=== PATIENT | male | born 1940 | race Hispanic/Latino ===

== ENCOUNTER → 2017-10-29 | Outpatient (CLI) | payer MEDICARE ==
[~2017-10-29] MED LIST: IOPAMIDOL 370 MG/ML 200 ML INFUS..BTL INJ ONE; SODIUM CHLORIDE 0.9% 250ML 500 ML ONE; SODIUM CHLORIDE 0.9% 50ML 50 ML ONE
[2017-10-29 13:42] LABS: CREATININE, SERUM 1.42 mg/dL (0.72-1.25)
--- NOTE | 2017-10-29 15:56 | Diagnostic Imaging Report ---
EXAM: CT Abdomen WITH contrast INDICATION: \[id number] \S\1400 \S\ELEVATED PANCREATIC ENZYMES/WT LOSS COMPARISON: None. TECHNIQUE: Abdomen was scanned utilizing a multidetector helical scanner from the lung base to the iliac crest after administration of IV contrast. Coronal and sagittal reformations were obtained. Routine protocol was performed. Scan was performed when during portal venous phase. IV CONTRAST: 100 mL of Isovue-370 ORAL CONTRAST: Water COMPLICATIONS: None RADIATION DOSE: Total DLP: 625.03 mGy*cm Estimated effective dose: (DLP x 0.015 x size factor) mSv CTDIvol has been reviewed. It is below the limits set by the Radiation Protocol Committee (RPC). FINDINGS: LINES and TUBES: None. LOWER THORAX: Nonspecific 3 mm posterior right base nodule. Partially imaged atherosclerotic calcification of the coronary arteries. HEPATOBILIARY: Ill-defined right hepatic lobe lesion, extending from segment 7, inferiorly. No biliary ductal dilation. GALLBLADDER: Surgically absent. SPLEEN: No splenomegaly. Punctate calcified granulomas. PANCREAS: Atrophic pancreas. No peripancreatic inflammation. No focal masses or ductal dilatation. ADRENALS: At least 8 x 9.2 cm heterogeneously enhancing mass with central necrotic areas in the area of right adrenal gland with focal extension to the adjacent hepatic parenchyma (series 6, image 15) and mass effect on right kidney. No left adrenal nodule. KIDNEYS/URETERS: Kidneys enhance symmetrically. No hydronephrosis. 1.6 cm left renal midpole cyst. Multiple additional bilateral subcentimeter hypodensities are too small to characterize. No stones. GI TRACT: Visualized bowel loops are unremarkable. No evidence of bowel obstruction. Normal appendix. LYMPH NODES: No lymphadenopathy. VESSELS: Severe aortoiliac atherosclerotic disease. Dilated portal vein, measuring up to 2.1 cm. PERITONEUM / RETROPERITONEUM: No free air. Trace ascites in the Morison pouch, adjacent to the liver and the above-mentioned mass. BONES: Mild lumbar spine scoliosis with multilevel degenerative changes. Multiple right-sided posterior rib old fracture deformities. SOFT TISSUES: Unremarkable. IMPRESSION: 1. At least 9.2 cm heterogeneously enhancing mass in the Alegria's pouch, with local extension to the liver and inferior displacement of the right kidney. The origin of the mass could be right adrenal or renal. Differentials include adrenal carcinoma or renal cell carcinoma with local invasion to the right hepatic lobe. 2. No signs of pancreatitis. Signed by: Dr. Brad Artis MD on 10/29/2017 2:56 PM
== END ==
LOC: CT 13:04
PROVIDERS: ATTEND Family Medicine
DX: R74.8 Abnormal levels of other serum enzymes (principal); R63.4 Abnormal weight loss; R63.0 Anorexia
CPT/HCPCS: 36415; 74160; 82565; 84520; J7050; Q9967

== ENCOUNTER → 2017-12-06 | Outpatient (CLI) | payer MEDICARE ==
[~2017-12-06] MED LIST changes: -SODIUM CHLORIDE 0.9% 250ML 500 ML ONE
[2017-12-06 17:02] LABS: BASOPHILS % 0.4 % (0.0-1.0); EOSINOPHILS # (AUTO) 0.1 (0.0-0.4); EOSINOPHILS % 1.6 % (0.0-6.0); HEMATOCRIT 37.9 % (38.2-49.6); HEMOGLOBIN 12.7 g/dL (14.0-18.0); LYMPHOCYTES % 17.8 % (18.0-39.1); MEAN CORPUSCULAR HEMOGLOBIN 30.8 pg (28-32); MEAN CORPUSCULAR HGB CONC 33.5 g/dL (31-35); MEAN CORPUSCULAR VOLUME 91.8 fL (81-99); MONOCYTES # (AUTO) 0.5 (0.2-0.8); MONOCYTES % 9.2 % (4.4-11.3); NEUTROPHILS % 70.8 % (38.7-80.0); PLATELET COUNT 247 x10e3/uL (140-360); RED BLOOD COUNT 4.13 x10e6/uL (4.3-5.7); RED CELL DISTRIBUTION WIDTH 13.2 % (11.7-14.4)
--- NOTE | 2017-12-06 17:26 | Diagnostic Imaging Report ---
EXAMINATION: PA and lateral views of the chest. COMPARISON: None CLINICAL HISTORY: Adrenal mass DISCUSSION: Lines/tubes: None. Lungs: The lungs are well inflated and clear. There is no evidence of pneumonia or pulmonary edema. Pleura: There is no pleural effusion or pneumothorax. Heart and mediastinum: Cardiomediastinal silhouette is unremarkable. Pulmonary vasculature is normal. Bones and soft tissues: No acute bony abnormalities. Healed right-sided rib fractures. Degenerative changes in the thoracic spine. IMPRESSION: No acute cardiopulmonary abnormalities. Signed by: Dr. Jono Liu M.D. on 12/06/2017 5:23 PM
[2017-12-06 18:15] LABS: ALANINE AMINOTRANSFERASE 63 IU/L (0-55); ALBUMIN 3.7 g/dL (3.5-5.0); ALBUMIN/GLOBULIN RATIO 1.1 (0.8-2.0); ALKALINE PHOSPHATASE 136 IU/L (40-150); ANION GAP 15.7 mmol/L (8-16); BLOOD UREA NITROGEN 22 mg/dL (7-26); BUN/CREATININE RATIO 19 (6-25); CALCIUM 9.6 mg/dL (8.4-10.2); CARBON DIOXIDE 19 mmol/L (22-29); CHLORIDE 100 mmol/L (98-107); CREATININE, SERUM 1.16 mg/dL (0.72-1.25); EST GLOMERULAR FILTRATION RATE > 60 ML/MIN (60-); GLUCOSE 92 mg/dL (74-118); POTASSIUM 4.7 mmol/L (3.5-5.1); SODIUM 130 mmol/L (136-145)
--- NOTE | 2017-12-06 19:14 | Diagnostic Imaging Report ---
EXAMINATION: CT scan of the chest with contrast. TECHNIQUE: Spiral CT images of the chest were performed from the lung apices to the level of the adrenal glands after the intravenous administration of 100 cc of Isovue 370. Coronal and sagittal reformatted images were obtained. COMPARISON: None. CLINICAL HISTORY:Adrenal mass DISCUSSION: LINES/TUBES: None. LUNGS AND AIRWAYS: The lungs are clear. No pulmonary nodules, masses or consolidation. The airways are clear, without endobronchial lesions. PLEURA: No pneumothorax or pleural effusions. HEART AND MEDIASTINUM: Thyroid is unremarkable. Heart size is normal. No pericardial effusion. Atherosclerotic calcification of the coronary arteries and thoracic aorta. Aorta is nonaneurysmal. Main pulmonary artery is normal in caliber. LYMPH NODES: Calcified subcarinal and right lower paratracheal lymph nodes. No enlarged mediastinal, hilar or axillary lymph nodes. No supraclavicular adenopathy. ABDOMEN: See CT abdomen and pelvis performed same day for further detail. BONES AND SOFT TISSUES: Lobulated, well circumscribed lucent lesion with thin sclerotic border in the left humeral head likely represents cystic degenerative changes (series 2, image 6). 1.0 cm lucent lesion with thin sclerotic border in the left lamina of C7 (series 2, image 3 and coronal image 78) has a nonaggressive appearance, without cortical erosion or destruction. Partially healed nondisplaced fractures of the posterolateral aspect of the right eighth, ninth, 10th, 11th ribs (series 2, images 32, 39, 49 and 60). Likely partially healed fracture of the posterolateral aspect of the left 10th rib (series 2, image 47).. IMPRESSION: 1. No pulmonary nodules or masses. 2. Lucent lesions in the left humeral head and left lamina of C7 have a nonaggressive appearance and likely represent cystic/degenerative changes. 3. Partially healed nondisplaced rib fractures, as described. No underlying focal mass or lytic lesion to suggest a pathologic fracture. Correlate for prior trauma. Signed by: Dr. Jono Liu M.D. on 12/06/2017 7:11 PM
--- NOTE | 2017-12-06 19:34 | Diagnostic Imaging Report ---
EXAMINATION: CT of the abdomen and pelvis with contrast. TECHNIQUE: Spiral CT images of the abdomen and pelvis were performed from the lung bases to the lesser trochanters after the intravenous administration of 100 cc of Isovue 370 and the oral administration of water. Coronal and sagittal reformatted images were obtained. COMPARISON: CT abdomen with contrast 10/29/2017 CLINICAL HISTORY:Adrenal mass DISCUSSION: ABDOMEN/PELVIS: LOWER THORAX:Please see chest CT performed same date for further detail. HEPATOBILIARY: Interval increase in size of irregular heterogeneous mildly hypodense lesion with heterogeneous enhancement in its superior aspect, measuring approximately 8.1 x 5.3 x 5.8 cm involving hepatic segment VII (series 2, image 51), consistent with direct extension from the adjacent adrenal neoplasm (previously measured approximately 6.9 x 5.3 x 4.4 cm). No other focal hepatic lesions. Mildly nodular hepatic contour. No intra or extrahepatic biliary ductal dilation. GALLBLADDER: Cholecystectomy clips. SPLEEN: No splenomegaly. Calcified splenic granuloma PANCREAS: No focal masses or ductal dilatation. ADRENALS: Slight interval increase in size in the previously visualized heterogeneous mass centered in the right adrenal gland (series 2, image 57 and coronal image 85), which measures approximately 10.6 x 10.0 x 8.7 cm (previously measured 10.0 x 9.0 x 8.3 cm). Central hypodense portions likely represent areas of necrosis. There are scattered internal areas of enhancement (for example series 2, image 60). There is direct extension/invasion into hepatic segment VII. The mass abuts the superior pole of the right kidney, with loss of the fat plane (sagittal image 42 and coronal image 85). Left adrenal gland is unremarkable. KIDNEYS/URETERS: No hydronephrosis, or stones. 1.8 cm simple cyst in the left anterolateral interpolar region (series 2, image 65). Left subcentimeter hypodense lesions, which are too small to characterize but likely represent small cysts. Cortical scarring is noted in bilateral kidneys. PELVIC ORGANS/BLADDER: Circumferential bladder wall thickening, without focal lesions. Prostate is mildly enlarged. PERITONEUM/RETROPERITONEUM: No free air or fluid. LYMPH NODES: No intra-abdominal, retroperitoneal, pelvic or inguinal lymphadenopathy. VESSELS: The celiac trunk,superior and inferior mesenteric and bilateral renal arteries are patent The portal, superior mesenteric and splenic veins are patent. Moderate atherosclerotic calcification of the abdominal aorta and iliac vessels. No filling defects are seen in the IVC. GI TRACT: No bowel dilation or evidence of obstruction. No pericolonic inflammatory changes. BONES AND SOFT TISSUE: No aggressive lytic lesions. Multilevel degenerative disc changes in the lower thoracic and lumbosacral spine, with leftward curvature of the lumbar spine. Soft tissues are grossly unremarkable. IMPRESSION: 1. Slight interval increase in size of large heterogeneous mass centered in the right adrenal gland, highly suspicious for adrenal cortical carcinoma, with interval increase in size of direct extension into hepatic segment VII. The mass abuts the superior pole the right kidney, with loss of the fat plane, and direct extension cannot be excluded. A malignant pheochromocytoma is a much less likely consideration. No evidence of metastatic disease in the abdomen or pelvis. 2. Circumferential bladder wall thickening, which may be secondary to bladder on the obstruction from a mildly enlarged prostate. Correlate for cystitis. 3. Mildly nodular hepatic contour, likely reflecting underlying cirrhosis. Signed by: Dr. Jono Liu M.D. on 12/06/2017 7:31 PM
== END ==
LOC: CT 16:27
PROVIDERS: ATTEND Surgery
DX: R19.09 Other intra-abdominal and pelvic swelling, mass and lump (principal)
CPT/HCPCS: 36415; 71046; 71260; 74177; 80053; 85025; Q9967; 93005

== ENCOUNTER → 2018-01-23 | Outpatient (CLI) | payer MEDICARE ==
[2018-01-23 17:23] LABS: CREATININE, SERUM 1.17 mg/dL (0.72-1.25)
--- NOTE | 2018-01-23 22:00 | Diagnostic Imaging Report ---
EXAM: CT Chest WITH contrast 01/23/2018 4:29 PM INDICATION: Abdominal mass COMPARISON: CT of the abdomen and pelvis on 12/06/2017 TECHNIQUE: Chest was scanned utilizing a multidetector helical scanner from the lung apex through the level of the adrenal glands without administration of IV contrast. Coronal and sagittal reformations were obtained. Routine protocol was performed. IV CONTRAST: 100 mL of Isovue-370 RADIATION DOSE: Total DLP: 528.13 mGy*cm Estimated effective dose: (DLP x 0.014 x size factor) mSv COMPLICATIONS: None FINDINGS: LINES/ TUBES: None. LUNGS AND AIRWAYS: The lungs are unremarkable. Airways are normal. PLEURA: The pleural spaces are clear. HEART AND MEDIASTINUM: The thyroid gland is normal. There are multiple, small mediastinal lymph nodes in the aortopulmonary, right lower paratracheal and subcarinal stations. The heart is normal in size.. There is no pericardial effusion. There are moderate atherosclerotic calcifications in the aorta and coronary arteries. UPPER ABDOMEN: There is a partially visualized large left hepatic mass that appears to arise from the right lobe of the liver, segment 7 measuring approximately 11.8 x 12.7 x 12.6 cm with extension into the right portal vein (tumor thrombus) best seen on series 2, image 120. The kidney appears to be displaced inferiorly with questionable invasion of the upper pole. BONES: There are degenerative changes in the thoracic spine. Severe degenerative changes of the bilateral glenohumeral and acromioclavicular joints more significant at the left glenohumeral (large subchondral cysts, synovial hypertrophy and calcifications) SOFT TISSUES: Unremarkable. IMPRESSION: 1. No evidence of intrathoracic metastatic disease. 2. Numerous lymph nodes in the mediastinum are below the threshold for adenopathy. 3. Large hypervascular mass with large right portal vein thrombus is suspicious for T4 adrenocortical carcinoma or less likely hepatocellular carcinoma. Correlation with tissue sampling reports. 4. Moderate atherosclerotic disease of the thoracic aorta and branches including coronary arteries. Signed by: Dr. Wally Mills M.D. on 01/23/2018 9:57 PM
== END ==
LOC: CT 16:10
PROVIDERS: ATTEND Family Medicine
DX: R74.8 Abnormal levels of other serum enzymes (principal); R19.07 Generalized intra-abdominal and pelvic swelling, mass and lump; R63.0 Anorexia; R63.4 Abnormal weight loss
CPT/HCPCS: 36415; 71260; 82565; 84520; Q9967

== ENCOUNTER → 2018-03-20 | Outpatient (CLI) | payer MEDICARE ==
[~2018-03-20] MED LIST changes: +FENTANYL CITRATE/PF 100MCG/2 ML INJ ONE; +GELATIN SPONGE 12-7MM ONE; -IOPAMIDOL 370 MG/ML 200 ML INFUS..BTL INJ ONE; +MIDAZOLAM HCL 2 MG/2 ML VIAL ONE; -SODIUM CHLORIDE 0.9% 50ML 50 ML ONE
[2018-03-20 09:45] LABS: INR 0.86; PROTHROMBIN TIME 12.5 seconds (11.9-14.5)
[2018-03-20 09:46] LABS: PARTIAL THROMBOPLASTIN TIME 30.7 seconds (23.8-35.5)
--- NOTE | 2018-03-20 12:37 | Diagnostic Imaging Report ---
CT guided fine needle aspiration and core biopsy of hepatorenal space mass. Comparison: CT Abdomen/Pelvis Consent: The nature of the procedure, including its risks, benefits and alternatives was explained to the patient who understood and gave consent. Operators: Tray Rios MD Anesthesia: Intravenous conscious sedation was administered by radiology nursing. Continuous hemodynamic and respiratory monitoring was performed, including the use of pulse oximetry. Sedation start time: 1036 AM Sedation end time: 1120 AM Total sedation time: 44 minutes. Medications: 10 cc of 1% subcutaneous lidocaine Fentanyl and Versed per nursing administration records TECHNIQUE: The patient was placed in the prone position. Initial CT demonstrated the right hepatorenal space mass, possibly arising from the adrenal gland, and possible involvement of the right upper kidney. A satisfactory path to the mass was identified. The skin of the right back was marked, prepped, draped and anesthetized with 1% lidocaine. With CT guidance, a 16 gauge introducer needle was inserted into the left upper quadrant mass. Fine needle aspirates with a 22 gauge Chiba needle were performed. Subsequently, with CT guidance, core biopsies were obtained with an 18 gauge core biopsy device. Pathology determined the samples were satisfactory for diagnosis. Gelfoam embolization of the tract was performed and the introducer needle was subsequently removed. Sterile bandage was placed. IMPRESSION: CT guided fine needle aspiration and core biopsy of right hepatorenal space mass as above. Signed by: Dr. Tray Rios MD on 03/20/2018 12:33 PM
== END ==
LOC: CT 07:19
PROVIDERS: ATTEND Surgery
DX: R16.0 Hepatomegaly, not elsewhere classified (principal)
CPT/HCPCS: 10022; 36415; 49180; 77012; 85049; 85610; 85730; 88112; 88172; 88173; 88305; 88342; J2250; 99152; 99153

== ENCOUNTER 2018-04-05 11:00 | Outpatient (RCR) | payer MEDICARE | END 2018-04-08 | LOC: PT 11:00 | PROVIDERS: ATTEND Specialist | DX: M25.511 Pain in right shoulder (principal); S42.301A Unspecified fracture of shaft of humerus, right arm, initial encounter for closed fracture | CPT/HCPCS: 97110 ×8; 97161; G8984; G8985 ==

== ENCOUNTER → 2018-04-24 | Outpatient (CLI) | payer MEDICARE ==
[~2018-04-24] MED LIST changes: -FENTANYL CITRATE/PF 100MCG/2 ML INJ ONE; +GADOBENATE DIMEGLUMINE 1 ML IV ONE; -GELATIN SPONGE 12-7MM ONE; -MIDAZOLAM HCL 2 MG/2 ML VIAL ONE
[2018-04-24 09:22] LABS: BLOOD UREA NITROGEN 23 mg/dL (7-26); BUN/CREATININE RATIO 20 (6-25); CREATININE, SERUM 1.13 mg/dL (0.72-1.25); EST GLOMERULAR FILTRATION RATE > 60 ML/MIN (60-)
--- NOTE | 2018-04-24 13:15 | Diagnostic Imaging Report ---
MRI abdomen CPT code: 64378 Indication: Hepatocellular carcinoma Technique: Multiplanar, multi-sequential MRI was performed both before and after the intravenous administration of 12 cc of gadolinium. Liver protocol was used. Comparison: CT chest 01/23/2018, CT chest, abdomen, pelvis 12/06/2017 Findings: Images are motion degraded due to patient's inability to adequately breath-hold. Liver: Morphology: Cirrhotic. Masses: * Solid soft tissue mass is exophytic and extends into Morison's pouch. It arises from segments 7 and 6. It involves the upper pole of the right kidney and the right adrenal gland. This mass is hypervascular with evidence of washout on delayed sequences. This mass measures 13.2 x 14.3 x 13.7 cm (AP, transverse, craniocaudal). On CT of the chest performed January 26, 2018, this mass measured 12.7 x 12.6 x 11.8 cm. This mass does not contain elements of blood or fat. This mass was biopsied. * Hypervascular lesion abutting the capsule of segment 8 measures 15 mm without evidence of washout. There is no evidence of mass in the left lobe. * There is tumor thrombus involving the distal main portal vein and the right portal vein branches (series 10, image 72) with resulting altered perfusion of segments 8 and 5. * No evidence of mass in the left lobe. * The left portal vein measures 18 mm in diameter and is patent. Hepatic veins: There is mass effect on the intrahepatic IVC and infrahepatic IVC secondary to tumor. Invasion cannot be excluded. The suprahepatic IVC is patent. Hepatic artery: Poorly visualized due to motion artifact. Hepatic artery branching appears conventional. Gallbladder: Not visualized and may be absent. Biliary tree: Mild intrahepatic biliary ductal distention, particularly in the right lobe. The common bile duct measures 5 mm in maximum dimension without intraluminal filling defects. Pancreas: Normal T1 signal. No mass or ductal dilatation. Spleen: Measures 12.4 cm in length. The contours are rounded. No mass Adrenal glands: The right adrenal gland is not visualized. The left adrenal gland is normal in morphology without mass. Kidneys: Right kidney: There is no fat plane between the liver mass and the upper pole of the right kidney. The interpolar cortex and the lower pole cortex have normal T2 signal with normal enhancement. There is an 8 mm high T2, low T1 signal lesion in the lateral cortex suggestive of a cyst. There are no enhancing renal lesions in the lower pole. The collecting system is not dilated. There is a small extrarenal pelvis. There is mass effect on the renal vein IVC confluence from the hepatic tumor. Invasion of the distal renal vein cannot be excluded. Left kidney: There are several cysts, measuring up to 2.1 x 1.7 cm. No enhancing mass or hydronephrosis. The left renal vein is patent. Lymph nodes: Motion degradation limits evaluation of the neel hepatis to identify enlarged lymph nodes. There are no enlarged. Aortic lymph nodes. No enlarged lymph nodes in the gastrohepatic ligament. Bowel: Stomach and visualized portions of the small bowel and large bowel are normal in diameter with normal wall thickness. Peritoneum/retroperitoneum: There is a trace amount of perihepatic ascites. No loculated fluid collection. Lung bases: Clear. Bones: Mild levoscoliosis of the lumbar spine. Diffuse degenerative changes of the lower thoracic and lumbar spine. Marrow signal is normal. No focal osseous lesions. Soft tissues: No soft tissue mass or hernia. IMPRESSION: Compromised study due to motion degradation. 1. Enlarging intrahepatic mass with exophytic component that involves the right kidney, right adrenal gland, IVC and distal right renal vein (LR 5). Invasion of the IVC and distal right renal vein cannot be excluded. 2. Tumor thrombus in the right portal vein and distal main portal vein (LR TIV). 3. Cirrhosis and portal hypertension. Rounded splenic contours are suggestive of developing splenomegaly. No significant amount of ascites. LR-TR Viable= Treated, Probably or definitely viable LR-TR Equivocal= Treated, Equivocally viable LR-TR Nonviable= Treated, Probably or definitely not viable LR-TR Nonevaluable= Treated, Response not evaluable due to image omission or degradation LR-NC Cannot be categorized due to image degradation or omission LR M = Possible non-HCC malignancy LR TIV = Definitely hepatocellular carcinoma tumor in the vein LR 5 = Definitely hepatocellular carcinoma (concordant with OPTN 5) LR 4 = Probably hepatocellular carcinoma LR 3 = Intermediate probability for hepatocellular carcinoma LR 2 = Probably benign LR 1 = Definitely benign Note: LI-RADS categories should be interpreted in the context of other available data, such as biomarkers and the patient's prior probability of developing or having hepatocellular carcinoma. The LI-RADS/OPTN classification of liver lesions has been adopted to standardize CT and MRI scan reporting in patients at risk for hepatocellular carcinoma. The imaging criteria for "definite hepatocellular carcinoma " are concordant for the LI-RADS and OPTN systems. LI-RADS criteria and documentation are available online at [email or web address].org/LI-RADS. This report utilizes LI-RADS version 2018. Signed by: Dr. Twila Ugarte MD on 04/24/2018 1:11 PM
== END ==
LOC: MRI 08:23
PROVIDERS: ATTEND Internal Medicine Hematology & Oncology
DX: C22.8 Malignant neoplasm of liver, primary, unspecified as to type (principal)
CPT/HCPCS: 36415; 74183; 82565; 84520

== ENCOUNTER → 2018-05-09 | Outpatient (RCR) | payer MEDICARE | LOC: PT 04-11 11:00 | PROVIDERS: ATTEND Specialist | DX: M25.511 Pain in right shoulder (principal); M25.611 Stiffness of right shoulder, not elsewhere classified; M62.81 Muscle weakness (generalized) | CPT/HCPCS: 97110 ×9; 97112 ×2; 97139; G8984; G8985 ==

== ENCOUNTER 2018-05-10 10:31 | Outpatient (RCR) | payer MEDICARE | END 2018-06-06 | LOC: PT 10:31 | PROVIDERS: ATTEND Specialist | DX: M25.511 Pain in right shoulder (principal); M25.611 Stiffness of right shoulder, not elsewhere classified; M62.81 Muscle weakness (generalized) | CPT/HCPCS: 97139 ==

== ENCOUNTER → 2018-10-09 | Outpatient (CLI) | payer MEDICARE ==
[~2018-10-09] MED LIST changes: -GADOBENATE DIMEGLUMINE 1 ML IV ONE; +IOPAMIDOL 370 MG/ML 200 ML INFUS..BTL INJ ONE; +SODIUM CHLORIDE 0.9% 500ML 500 ML ONE; +SODIUM CHLORIDE 0.9% 50ML 50 ML ONE
[2018-10-09 15:58] LABS: CREATININE, SERUM 1.64 mg/dL (0.72-1.25)
--- NOTE | 2018-10-09 20:29 | Diagnostic Imaging Report ---
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 Coronal and sagittal reformations were obtained. Routine protocol was performed. Scan was performed when during portal venous phase. IV CONTRAST: 100 mL of Isovue 370 ORAL CONTRAST: None. COMPLICATIONS: None RADIATION DOSE: Total DLP: 184 mGy*cm Estimated effective dose: (DLP x 0.015 x size factor) mSv CTDIvol has been reviewed. It is below the limits set by the Radiation Protocol Committee (RPC). Dose modulation, iterative reconstruction, and/or weight based adjustment of the mA/kV was utilized to reduce the radiation dose to as low as reasonably achievable. FINDINGS: LINES and TUBES: None. LOWER THORAX: Calcific coronary artery atherosclerosis. HEPATOBILIARY: Compared to abdominal MRI 04/24/2018, similar size of the 14.4 x 15.4 x 13.5 cm (SI x AP x ML) centrally necrotic mass which extends from the right hepatic dome through the hepatorenal recess and adrenal fossa, and into the superior aspect of the right kidney . Heterogeneity of the adjacent superoanterior aspect of the right hepatic lobe. The superior intrahepatic aspect of the mass is ill defined. No biliary ductal dilation. GALLBLADDER: Not identified. SPLEEN: No splenomegaly. PANCREAS: No focal masses or ductal dilatation. ADRENALS: Right adrenal fossa is occupied by the large necrotic mass described above. KIDNEYS/URETERS: The superior aspect of the right kidney is involved by the large necrotic mass described above. Stable 1.6 cm left renal simple cyst. Additional cysts are too small to characterized, likely benign. GI TRACT: No abnormal distention, wall thickening, or evidence of bowel obstruction. LYMPH NODES: Slight increased size of upper retroperitoneal lymph nodes compared to abdominal CT on 01/23/2018, for example a 1.9 cm right periaortic lymph node (series 2 image 32), was 1.6 cm, and a 0.8 cm left periaortic lymph node (series 2 image 34), was 0.6 cm. VESSELS: Increased size of the main portal vein tumor thrombus now measures up to 2.8 cm (series 2 image 25), was 2.2 cm on abdominal MRI 04/24/2018. Subtle nodularity along the posterior aspect of the intrahepatic IVC (series 2 image 26, series 300 image 54) PERITONEUM / RETROPERITONEUM: Hazy mesentery and subtle nodularity in the hepatorenal recess, and trace fluid along the right hepatic margin. BONES: There are degenerative changes in the lumbar spine. SOFT TISSUES: Unremarkable. IMPRESSION: Compared to abdominal MRI 04/24/2018, similar size of the transcompartmental mass centered in the right adrenal fossa, which extends to the right hepatic dome and involves the superior right kidney. This is likely an adrenal adenocarcinoma, other considerations are renal cell or hepatocellular carcinoma. Heterogeneous attenuation of the superoanterior aspect of the right hepatic lobe could be perfusion related or due to advancing hepatic tumor infiltration. Increased size of the main portal vein tumor thrombus. Probable local mesenteric/retroperitoneal metastatic nodularity in the right upper abdomen and upper retroperitoneal adenopathy. Suspicion for new focal intrahepatic inferior vena cava invasive tumor thrombus Signed by: Leonard Lawton MD on 10/09/2018 8:25 PM
== END ==
LOC: CT 15:04
PROVIDERS: ATTEND Internal Medicine Hematology & Oncology
DX: C22.8 Malignant neoplasm of liver, primary, unspecified as to type (principal); C78.6 Secondary malignant neoplasm of retroperitoneum and peritoneum
CPT/HCPCS: 36415; 74160; 82565; 84520; 96360; J7040; Q9967